=== PATIENT | female | born 1955 | race African-American/Black ===

== ENCOUNTER 2016-11-20 10:42 | Inpatient (IN) | payer OTHER ==
--- NOTE | 2016-11-20 11:11 | PDOC ---
History of Present Illness - General Chief Complaint: Pain, Acute Stated Complaint: ABD PAIN, VOMITING Time Seen by Provider: 11/20/16 11:08 History Source: Patient Exam Limitations: No Limitations - History of Present Illness Travel History: No Initial Comments: 11/20/16 11:42 61 yo F with significant PMHx of HTN presents from PMD office for possible incarcerated hernia.She has 3 day history of nausea and non-bilious vomiting. She describes 5/10 non radiating abdominal pain localized to midline just above umbilicus. Pain worse when she lyes down. No alleviating factors. Accompanied by subjective fever and chills. Denies CP, RASHID, palpitations Timing/Duration: reports: getting worse Quality: reports: moderate Pain Radiation: reports: periumbilical Past History - Past Medical History Allergies/Adverse Reactions: Allergies Allergy/AdvReac Type Severity Reaction Status Date / Time No Known Allergies Allergy Verified 11/20/16 10:54 Home Medications: Ambulatory Orders Carvedilol 25 mg PO DAILY 11/20/16 Losartan/Hydrochlorothiazide [Losartan-Hctz 100-25 mg Tab] 1 each PO DAILY 11/20 - Psycho/Social/Smoking Cessation Hx Suicidal Ideation: No Smoking History: Never smoked *Physical Exam - Vital Signs Last Vital Signs Temp Pulse Resp BP Pulse Ox 97.9 F 83 19 121/52 99 11/20/16 10:54 11/20/16 10:54 11/20/16 10:54 11/20/16 10:54 11/20/16 10:54 - Physical Exam General Appearance: Yes: Mild Distress HEENT: positive: EOMI, ADRIENNE Neck: positive: Supple Respiratory/Chest: positive: Lungs Clear, Normal Breath Sounds. negative: Respiratory Distress, Accessory Muscle Use Cardiovascular: positive: Regular Rhythm, Regular Rate, S1, S2. negative: Edema , JVD, Murmur Vascular Pulses: Dorsalis-Pedis (R): 2+, Doralis-Pedis (L): 2+ Gastrointestinal/Abdominal: positive: Normal Bowel Sounds, Tender, Soft, Other ( non reducable ventral hernia with out discoloration. ) Musculoskeletal: positive: Normal Inspection. negative: CVA Tenderness Extremity: positive: Normal Capillary Refill, Normal Inspection, Normal Range of Motion Integumentary: positive: Normal Color, Dry, Warm. negative: Cyanotic, Erythema , Jaundice ED Treatment Course - LABORATORY CBC & Chemistry Diagram: 11/20/16 11:50 11/20/16 12:34 - RADIOLOGY Radiograph Interpretation: 11/20/16 16:39 * CT/ABDOMEN PELVIS CT WITH CONTR HISTORY PROVIDED: Rule out incarcerated ventral hernia. Sequential axial images were obtained from the domes of the diaphragms through the symphysis pubis following the administration of both oral and intravenous contrast material. The lung bases are clear. There is a trace amount of ascites about the liver with free fluid in the dependent portion of the pelvis as well. There is a ventral hernia within the midline of the upper abdominal wall which does contain an incarcerated loop of small bowel. There is mild dilatation of proximal small bowel loops consistent with a partial obstruction, however, there is contrast filling normal caliber distal loops and therefore, this does not represent a high-grade obstruction. Clinical correlation and follow-up is recommended. The liver, spleen, pancreas, adrenal glands and kidneys demonstrate no significant abnormalities. There is no evidence of intra-abdominal or retroperitoneal lymphadenopathy or fluid collections. Examination of the pelvis demonstrates no evidence of pelvic masses , fluid collections or lymphadenopathy. The uterus is retroverted. There is no evidence of acute bony pathology. IMPRESSION: Ventral hernia within the midline of the upper anterior abdominal wall containing an incarcerated loop of small bowel. There is evidence for a low-grade bowel obstruction related to the hernia. Clinical correlation and follow-up recommended. Please see above discussion. Reported By: José Miguel Bernal MD 11/20/16 1624 Medical Decision Making - Medical Decision Making 11/20/16 16:41 A:61 yo F with significant PMHx of HTN presents from PMD office for possible incarcerated hernia. P: * Abdominal CT sent and positive for small incarcerated hernia * WIll admit under Omayra Raphael MD * WIll consult Dr. Chong for surgery. * Will give Levaquin 750mg IV x 1 *DC/Admit/Observation/Transfer Diagnosis at time of Disposition: Incarcerated hernia of abdominal cavity - Discharge Dispostion Condition at time of disposition: Stable Admit: Yes
[2016-11-20] MEDS ORDERED: SODIUM CHLORIDE 1,000 ML IV STA (11:33)
[2016-11-20] MEDS ORDERED: morphine CARPU-JECT 2 MG/1 ML DISP.SYRIN IVPUSH ONE (11:35)
[2016-11-20 11:59] LABS: BASOPHIL 0.6 % (0-2.0); EOSINOPHIL 0.6 % (0-4.5); MCH 27.9 pg (25.7-33.7); MCHC 33.1 g/dl (32.0-36.0); MEAN CELL VOLUME 84.3 fl (80-96); MEAN PLT VOLUME 9.2 fl (7.5-11.1); NEUTROPHILS 64.8 % (42.8-82.8); PLATELET COUNT 259 K/MM3 (134-434); RDW 14.4 % (11.6-15.6); WHITE BLOOD COUNT 10.6 K/mm3 (4.0-10.0)
[2016-11-20] MEDS ORDERED: morphine CARPU-JECT 2 MG/1 ML DISP.SYRIN ONE (12:04)
--- NOTE | 2016-11-20 12:46 | PDOC ---
Attending Attestation - Resident Resident Name: Venkat Shetty - ED Attending Attestation I have performed the following: I have examined & evaluated the patient, The case was reviewed & discussed with the resident, I agree w/resident's findings & plan, Exceptions are as noted - HPI HPI: 11/20/16 12:44 61-year-old female with history of section sent from Dr. Olsen's office with concern for incarcerated hernia. Has had 2 days of persistent periumbilical abdominal discomfort with intractable nausea/vomiting and decreased rectal output. - Physicial Exam PE: 11/20/16 12:45 Afebrile. Well-appearing. Abdomen is soft and nondistended, palpable and nonreducible supraumbilical hernia with no overlying discoloration, but tenderness to palpation. - Medical Decision Making 11/20/16 12:45 Patient seen and evaluated with the resident. I agree with the overall evaluation, assessment, and management with the following summary of visit: 61-year-old female with likely incarcerated ventral/umbilical hernia. Labs CTAP Pain control, nausea control admission and surgery consult
[2016-11-20 14:22] LABS: ALBUMIN 3.2 g/dl (3.4-5.0); CALCIUM 9.2 mg/dL (8.5-10.1)
[2016-11-20 14:26] LABS: BILIRUBIN,TOTAL 0.8 mg/dL (0.2-1.0); COCKROFT - GAULT 63.4525; TOT PROT 7.1 g/dl (6.4-8.2)
[2016-11-20] MEDS ORDERED: LEVOFLOXACIN 750 MG IVPB 150 ML IVPB ONE ×2 (16:30→16:57)
[2016-11-20 18:18] VITALS: BMI 26.5
[2016-11-20] MEDS: DEXTROSE 5%-0.45% SALINE 1,000 ML IV SCH (21:00)
--- NOTE | 2016-11-20 21:22 | CONSULT ---
Consult Consult Specialty:: Surgery: Referred by:: Donavon Cutler - History of Present Illness Chief Complaint: Abdominal pain for 3 days and vomiting. - History Source History Provided By: Patient (C/O [place]bdominal pain forthe past 3 days with vomiting.) Limitations to Obtaining History: No Limitations - Past Medical History Cardio/Vascular: Yes: HTN ...: No - Alcohol/Substance Use Hx Alcohol Use: No - Smoking History Smoking history: Never smoked Home Medications - Allergies Allergies/Adverse Reactions: Allergies Allergy/AdvReac Type Severity Reaction Status Date / Time No Known Allergies Allergy Verified 11/20/16 10:54 - Home Medications Home Medications: Ambulatory Orders Carvedilol 25 mg PO DAILY 11/20/16 Losartan/Hydrochlorothiazide [Losartan-Hctz 100-25 mg Tab] 1 each PO DAILY 11/20 Physical Exam Vital Signs: Vital Signs Temperature 98 F 11/20/16 18:14 Pulse Rate 96 H 11/20/16 18:14 Respiratory Rate 20 11/20/16 20:02 Blood Pressure 145/88 11/20/16 18:14 O2 Sat by Pulse Oximetry (%) 99 11/20/16 20:02 Gastrointestinal: Yes: Abdomen, Obese, Palpable Mass (There is a well rounded mass on her upper abdomen to the left of the midline, above the umbilicus. This was carefully reduced , during examination , and the mass disappeared , reduced into the abdominal cavity.) Imaging - Results Cat Scan: Report Reviewed, Image Reviewed Problem List - Problems (1) Ventral hernia with bowel obstruction Code(s): K43.6 - OTHER AND UNSP VENTRAL HERNIA WITH OBSTRUCTION, W/O GANGRENE (2) Hypertension Code(s): I10 - ESSENTIAL (PRIMARY) HYPERTENSION Qualifiers: Hypertension type: essential hypertension Qualified Code(s): I10 - Essential (primary) hypertension Assessment/Plan The hernia was reduced at the bedside. Patient is made aware of having the hernia and need for surgical repair to avoid recurrence and strangulation. Keep NPO. IV fluids. Will plan surgery for 11/22/2016. NG tube placed , and connected to suction. Follow up abdominal X-ray
[2016-11-21] MEDS: DEXTROSE 5%-0.45% SALINE 1,000 ML IV SCH (05:42)
[2016-11-21 07:40] LABS: MCH 28.1 pg (25.7-33.7); MCHC 33.3 g/dl (32.0-36.0); MEAN CELL VOLUME 84.5 fl (80-96); MEAN PLT VOLUME 8.6 fl (7.5-11.1); PLATELET COUNT 202 K/MM3 (134-434); RDW 14.1 % (11.6-15.6); WHITE BLOOD COUNT 6.9 K/mm3 (4.0-10.0)
[2016-11-21 08:02] LABS: CALCIUM 8.9 mg/dL (8.5-10.1); COCKROFT - GAULT 70.499; CREATININE 0.9 mg/dL (0.55-1.02)
--- NOTE | 2016-11-21 10:48 | HP ---
Admitting History and Physical - Primary Care Physician PCP: Tony Olsen M - Admission Chief Complaint: abd pain History of Present Illness: ER HISTORY - History of Present Illness Travel History: No Initial Comments: 11/20/16 11:42 61 yo F with significant PMHx of HTN presents from PMD office for possible incarcerated hernia.She has 3 day history of nausea and non-bilious vomiting. She describes 5/10 non radiating abdominal pain localized to midline just above umbilicus. Pain worse when she lyes down. No alleviating factors. Accompanied by subjective fever and chills. Denies CP, RASHID, palpitations Pt examined by me on the floors She was sent form DR Olsen's office for abd pain, no BM since Friday, nausea and vomiting. No radiation of pain - pt points to the periumbilical area. She has NGT on suction. 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 No recent coughing or straining . H/O History Source: Patient Limitations to Obtaining History: No Limitations - Past Medical History Cardiovascular: Yes: HTN ...: No - Past Surgical History Past Surgical History: Yes: - Smoking History Smoking history: Never smoked - Alcohol/Substance Use Hx Alcohol Use: No Home Medications - Allergies Allergies/Adverse Reactions: Allergies Allergy/AdvReac Type Severity Reaction Status Date / Time No Known Allergies Allergy Verified 11/20/16 10:54 - Home Medications Home Medications: Ambulatory Orders Carvedilol 25 mg PO DAILY 11/20/16 Losartan/Hydrochlorothiazide [Losartan-Hctz 100-25 mg Tab] 1 each PO DAILY 11/20 Review of Systems - Review of Systems Constitutional: denies: Chills, Fever, Weakness Gastrointestinal: reports: Abdominal Pain, Constipation, Nausea, Vomiting. denies: Diarrhea Physical Examination Vital Signs: Vital Signs Temperature 99.0 F 11/21/16 06:22 Pulse Rate 72 11/21/16 06:22 Respiratory Rate 20 11/21/16 06:22 Blood Pressure 139/79 11/21/16 06:22 O2 Sat by Pulse Oximetry (%) 99 11/20/16 20:02 Constitutional: Yes: No Distress, Calm, Other (NGT+) Cardiovascular: Yes: Regular Rate and Rhythm Respiratory: Yes: CTA Bilaterally Gastrointestinal: Yes: Soft, Abdomen, Obese, Other (umbilical hernia+ reduced). No: Normal Bowel Sounds, Distention, Tenderness Edema: No Psychiatric: Yes: Alert, Oriented Labs: CBC, BMP 11/21/16 06:40 11/21/16 06:40 Imaging - Results Chest X-ray: Image Reviewed (clear) Cat Scan: Report Reviewed EKG: Pending Problem List - Problems (1) Hypertension Code(s): I10 - ESSENTIAL (PRIMARY) HYPERTENSION Qualifiers: Hypertension type: essential hypertension Qualified Code(s): I10 - Essential (primary) hypertension (2) Incarcerated hernia of abdominal cavity Code(s): K45.0 - OTH ABDOMINAL HERNIA WITH OBSTRUCTION, WITHOUT GANGRENE (3) Ventral hernia with bowel obstruction Code(s): K43.6 - OTHER AND UNSP VENTRAL HERNIA WITH OBSTRUCTION, W/O GANGRENE Assessment/Plan PLAN Keep NPO Pain control if needed IV fluids with KCL NGT on suction FUA done today-- pending - but she is not passing flatus nor had a bm today. No bowel sounds heard today either. IV antibiotics-- intra-abdominal coverage, has low grade fever, check cultures today . Not done in ER spoke with Dr Chong -- she will go for surgery tomorrow-- he reduced the hernia today. EKG ordered, will clear her medically for surgery after I see her EKG DVT prophylaxis Spoke with Nurse Time spent 30 min
[2016-11-21] MEDS ORDERED: D5-1/2NS+20 MEQ KCL - 1,000 ML IV SCH (10:50)
[2016-11-21] MEDS ORDERED: LORAZEPAM CARPU-JECT 2 MG/ML DISP.SYRIN IVPUSH PRN (11:17)
[2016-11-21] MEDS: LEVOFLOXACIN 500 MG IVPB 100 ML IVPB SCH (11:27)
[2016-11-21] MEDS: PANTOPRAZOLE SODIUM 100 ML IVPB SCH (12:04)
[2016-11-21 13:42] LABS: INR 1.42 (0.82-1.09); PROTHROMBIN TIME (PATIENT) 15.7 SEC (9.98-11.88)
--- NOTE | 2016-11-21 16:24 | PN ---
Progress Note, Physician - Current Medication List Current Medications: Active Medications Potassium Chloride/Dextrose/Sod Cl (D5-1/2ns+20 Meq Kcl -) 1,000 mls @ 100 mls/ hr IV ASDIR [facility] Last Admin: 11/21/16 11:29 Dose: 100 mls/hr Levofloxacin (Levaquin 500 Mg Premixed Ivpb -) 100 mls @ 100 mls/hr IVPB DAILY [facility] Last Admin: 11/21/16 11:27 Dose: 100 mls/hr Pantoprazole Sodium (Protonix 40mg Ivpb (Pre-Docked)) 100 mls @ 200 mls/hr IVPB DAILY [facility] Last Admin: 11/21/16 12:04 Dose: 200 mls/hr Lorazepam (Ativan Injection -) 0.5 mg IVPUSH TID PRN PRN Reason: ANXIETY - Objective Vital Signs: Vital Signs Temperature 99.0 F 11/21/16 14:52 Pulse Rate 68 11/21/16 14:52 Respiratory Rate 18 11/21/16 10:00 Blood Pressure 140/79 11/21/16 14:52 O2 Sat by Pulse Oximetry (%) 99 11/21/16 09:00 Labs: CBC, BMP 11/21/16 06:40 11/21/16 06:40 INR, PTT INR 1.42 (0.82-1.09) H 11/21/16 12:45 Problem List - Problems (1) Ventral hernia with bowel obstruction Code(s): K43.6 - OTHER AND UNSP VENTRAL HERNIA WITH OBSTRUCTION, W/O GANGRENE (2) Hypertension Code(s): I10 - ESSENTIAL (PRIMARY) HYPERTENSION Qualifiers: Hypertension type: essential hypertension Qualified Code(s): I10 - Essential (primary) hypertension Assessment/Plan Patient has no abdominal pain. She has not passed flatus. Abdomen is soft , not tender, she still has a mass inher epigastrium. Abdominal X-ray shows dilated loops of small bowel with contrast in the colon. WBC 6900. Continue nasogastric aspiration, IV fluids. I have discussed with the director of medical staff services of "[facility]", the [employer] who wants to transfer the patient and will let us know if he can , to a hospital participating with her plan. The patient is made aware.
--- NOTE | 2016-11-21 17:21 | EKG ---
Test Reason : Blood Pressure : / mmHG Vent. Rate : 064 BPM Atrial Rate : 064 BPM P-R Int : 158 ms QRS Dur : 086 ms QT Int : 416 ms P-R-T Axes : 032 023 046 degrees QTc Int : 429 ms NORMAL SINUS RHYTHM NORMAL ECG WHEN COMPARED WITH ECG OF 19-JUN-2006 07:34, NO SIGNIFICANT CHANGE WAS FOUND Confirmed by GIUSEPPE HOUSER MD ([id number]) on 11/21/2016 5:20:48 PM Referred By: ABDOULAYE JEREZ Confirmed By:GIUSEPPE HOUSER MD
[2016-11-22 09:29] LABS: CALCIUM 8.8 mg/dL (8.5-10.1); COCKROFT - GAULT 79.3135; CREATININE 0.8 mg/dL (0.55-1.02)
[2016-11-22] MEDS: PANTOPRAZOLE SODIUM 100 ML IVPB SCH (09:33)
[2016-11-22] MEDS: LEVOFLOXACIN 500 MG IVPB 100 ML IVPB SCH (09:33)
--- NOTE | 2016-11-22 10:38 | PN ---
Progress Note (short form) - Note Progress Note: Subjective Patient seen and examined. Chart reviewed. Comfortable. Scheduled for OR later today. Pt denies pain. Daughter at bedside Objective Last Vital Signs Temp Pulse Resp BP Pulse Ox 98.7 F 72 18 145/70 99 11/22/16 09:31 11/22/16 09:31 11/22/16 09:31 11/22/16 09:31 11/21/16 21:00 CBC, BMP 11/21/16 06:40 11/22/16 07:34 Laboratory Results - last 24 hr 11/21/16 11/22/16 12:45 07:34 INR 1.42 H Sodium 140 Potassium 3.5 Chloride 103 Carbon Dioxide 29 Anion Gap 8 BUN 11 D Creatinine 0.8 Random Glucose 99 Calcium 8.8 Physical Exam Constitutional: Yes: No Distress, Calm, Other (NGT+) Cardiovascular: Yes: Regular Rate and Rhythm Respiratory: Yes: CTA Bilaterally Gastrointestinal: Yes: Soft Edema: No Psychiatric: Yes: Alert, Oriented Problem List - Problems (1) Hypertension Code(s): I10 - ESSENTIAL (PRIMARY) HYPERTENSION Qualifiers: Hypertension type: essential hypertension Qualified Code(s): I10 - Essential (primary) hypertension (2) Incarcerated hernia of abdominal cavity Code(s): K45.0 - OTH ABDOMINAL HERNIA WITH OBSTRUCTION, WITHOUT GANGRENE (3) Ventral hernia with bowel obstruction Code(s): K43.6 - OTHER AND UNSP VENTRAL HERNIA WITH OBSTRUCTION, W/O GANGRENE Assessment and Plan Clincially stable. SBO. Continue present care. Medically stable for proposed procedure. Discussed with patient and pt's daughter. Will follow. Documentation prepared by Hannah Celis, acting as a medical editor for Valentine Obrien MD.
[2016-11-22] MEDS ORDERED: SUCCINYLCHOLINE CHLORIDE 200 MG/10 ML VIAL ONE (12:27)
[2016-11-22] MEDS ORDERED: PROPOFOL 20 ML ONE (12:27)
[2016-11-22] MEDS ORDERED: MIDAZOLAM HCL 2 MG/2 ML SINGLE DOSE VIAL ONE (12:27)
[2016-11-22] MEDS ORDERED: ROCURONIUM BROMIDE 50 MG/5 ML VIAL ONE (12:27)
[2016-11-22] MEDS ORDERED: LACTATED RINGERS SOLUTION 1,000 ML IV SCH (12:30)
[2016-11-22] MEDS ORDERED: PROMETHAZINE HCL 25 MG/1 ML VIAL IVPUSH PRN ×2 (12:30→16:08)
[2016-11-22] MEDS ORDERED: ONDANSETRON 4 MG/2 ML VIAL IVPUSH PRN ×2 (12:30→16:08)
[2016-11-22] MEDS ORDERED: ceFAZolin SODIUM 1 GM VIAL IVPB ONE (13:23)
[2016-11-22] MEDS ORDERED: ePHEDrine SULFATE 50 MG/1 ML AMPULE ONE (13:28)
[2016-11-22] MEDS ORDERED: BUPIVACAINE HCL/PF (5 MG/ML) 30 ML VIAL IJ ONE (15:09)
--- NOTE | 2016-11-22 15:35 | OP ---
Operative Note - Note: Operative Date: 11/22/16 Pre-Operative Diagnosis: Incarcerated ventral hernia. Operation: Laparoscopic repair of incarcerated ventral hernia with mesh. Findings: Large abdominal wall defect above the umbilicus, with incarcerated fat, and bowel reduced. Surgeon: Jag Chong [place] Furnace Tender: Marina Houston Anesthesiologist/TOWER CLIMBER: Manuel Munoz Anesthesia: General Specimens Removed: Henial sac and contents. Estimated Blood Loss (mls): 10 Operative Report Dictated: Yes
[2016-11-22] MEDS ORDERED: IBUPROFEN 400 MG TABLET (FP) PO PRN (15:40)
[2016-11-22] MEDS ORDERED: OXYCODONE/APAP 5/325MG COMBO TABLET PO PRN (15:41)
[2016-11-22] MEDS ORDERED: LORAZEPAM CARPU-JECT 2 MG/ML DISP.SYRIN IVPUSH PRN (16:08)
[2016-11-22] MEDS ORDERED: LABETALOL HCL 5 MG/1 ML (100MG/20 ML VIAL) IVPUSH ONE (16:30)
[2016-11-22] MEDS ORDERED: hydrALAZINE HCL 20 MG/ML VIAL ONE (16:33)
[2016-11-22] MEDS: LACTATED RINGERS SOLUTION 1,000 ML IV SCH (17:00)
[2016-11-22] MEDS ORDERED: hydrALAZINE HCL 20 MG/ML VIAL IVPUSH ONE (17:08)
[2016-11-22] MEDS: ACETAMINOPHEN 325 MG TABLET (FP) PO PRN (21:27)
[2016-11-22] MEDS: oxyCODONE HCL 5 MG TABLET PO PRN (21:27)
[2016-11-23] MEDS: oxyCODONE HCL 5 MG TABLET PO PRN (05:42)
[2016-11-23] MEDS: ACETAMINOPHEN 325 MG TABLET (FP) PO PRN (05:43)
[2016-11-23] MEDS: LACTATED RINGERS SOLUTION 1,000 ML IV SCH ×2 (05:44→09:42)
--- NOTE | 2016-11-23 09:30 | PN ---
Progress Note, Physician Chief Complaint: Pt has no GA complaints. Eating breakfast. - Current Medication List Current Medications: Active Medications Acetaminophen (Tylenol -) 650 mg PO Q6H PRN PRN Reason: PAIN 6-10 Last Admin: 11/23/16 05:43 Dose: 650 mg Carvedilol (Coreg -) 25 mg PO DAILY [facility] Fentanyl (Sublimaze Injection -) 50 mcg IVPUSH [id number] PRN PRN Reason: PAIN Stop: 11/25/16 12:31 HCTZ/Losartan Potassium (Hyzaar -) 2 tab PO DAILY [facility] Lactated Ringer's (Lactated Ringers Solution) 1,000 mls @ 125 mls/hr IV ASDIR [facility] Last Admin: 11/23/16 05:44 Dose: 125 mls/hr Ibuprofen (Motrin -) 400 mg PO Q6H PRN PRN Reason: PAIN Lorazepam (Ativan Injection -) 0.5 mg IVPUSH TID PRN PRN Reason: ANXIETY Oxycodone HCl (Roxicodone -) 10 mg PO Q6H PRN PRN Reason: PAIN 6-10 Last Admin: 11/23/16 05:42 Dose: 10 mg - Objective Vital Signs: Vital Signs Temperature 97.5 F L 11/23/16 06:00 Pulse Rate 75 11/23/16 06:00 Respiratory Rate 16 11/23/16 06:00 Blood Pressure 141/85 11/23/16 06:00 O2 Sat by Pulse Oximetry (%) 95 11/22/16 21:00 Constitutional: Yes: Well Nourished, No Distress, Calm Neurological: Yes: WNL, Alert, Oriented ...Motor Strength: WNL Labs: CBC, BMP 11/21/16 06:40 11/22/16 07:34 INR, PTT INR 1.42 (0.82-1.09) H 11/21/16 12:45 Assessment/Plan POD#1 s/p laparoscopic ventral hernia repair. Doing well. D/C from anesthesia care.
[2016-11-23] MEDS ORDERED: CARVEDILOL 25 MG TABLET (FP) PO SCH (10:00)
[2016-11-23] MEDS ORDERED: LOSARTAN 50MG/HCTZ 12.5MG 1 TAB (FP) PO SCH (10:00)
--- NOTE | 2016-11-23 13:02 | DS ---
Physical Examination Vital Signs: Vital Signs Temperature 97.5 F L 11/23/16 06:00 Pulse Rate 75 11/23/16 06:00 Respiratory Rate 16 11/23/16 06:00 Blood Pressure 141/85 11/23/16 06:00 O2 Sat by Pulse Oximetry (%) 95 11/22/16 21:00 Findings/Remarks: doing well no complains pain under control ate breakfast passing gas Constitutional: Yes: No Distress, Calm Neck: Yes: Supple Cardiovascular: Yes: Regular Rate and Rhythm Respiratory: Yes: CTA Bilaterally Gastrointestinal: Yes: Soft Edema: No Labs: CBC, BMP 11/21/16 06:40 11/22/16 07:34 Discharge Summary Reason For Visit: INCARCERATED HERNIA OF ABDOMINAL CAVITY Current Active Problems Hypertension (Acute) Incarcerated hernia of abdominal cavity (Acute) Ventral hernia with bowel obstruction (Acute) Hospital Course: POD#1 s/p laparoscopic ventral hernia repair-- incarcinated findings noted discussed with Dr. Castillo David for d/c home Dr. Chong says he send meds meds reconcilled pt to follow with her pmd next week and f/u with surgeon as advised small frequent meals stool softners pt in agreement discussed with nursing staff also d/c time in examining/ documenting and coordinating care-- 35 min Condition: Stable - Instructions Diet, Activity, Other Instructions: Usual diet. Can shower daily. Follow up in my office on 11/28/2016, at 4.30 p,m. Referrals: Freida Olsen MD [Primary Care Provider] - - Home Medications Comprehensive Discharge Medication List: Ambulatory Orders Carvedilol 25 mg PO DAILY 11/20/16 Losartan/Hydrochlorothiazide [Losartan-Hctz 100-25 mg Tab] 1 each PO DAILY 11/20 Acetaminophen [Tylenol .Regular Strength -] 650 mg PO Q6H PRN #0 tablet Ibuprofen [Motrin -] 400 mg PO Q6H PRN #0 tablet 11/23/16 Oxycodone HCl [Roxicodone -] 10 mg PO Q6H PRN #30 tablet MDD 4 11/23/16
--- NOTE | 2016-11-23 14:25 | OP ---
DATE OF OPERATION: 11/22/2016 PREOPERATIVE DIAGNOSES: Incarcerated ventral hernia and hypertension. POSTOPERATIVE DIAGNOSES: Incarcerated ventral hernia and hypertension. OPERATIVE PROCEDURE: Laparoscopic repair of incarcerated ventral hernia with mesh. SURGEON: Brayan Chong MD KIER PLEATER: LOR Pearson ANESTHESIOLOGIST: Yu Munoz MD ANESTHESIA: General anesthesia. OPERATIVE DESCRIPTION: This 61-year-old woman was admitted with sudden onset of pain and swelling in the epigastrium associated with nausea and vomiting. She was diagnosed with an incarcerated ventral hernia and was admitted to the hospital. The hernia was reduced upon admission manually by me and then she was followed with subsequent abdominal x-ray which showed the obstruction having been relieved with the contrast progressing down to the colon. She was seen by the medical service, evaluated, and once she was optimized she was brought to the operating room for repair of the ventral hernia. Consent was obtained. Risks, benefits, and complications have been discussed with the patient. The hernia was subsequently reducible. However, the bowel kept on incarcerating within the defect. Patient was brought to the operating room. General anesthesia was administered. The abdomen was painted and draped. Patient had previous lower abdominal surgery from 3 sections many, many years ago. Timeout was called. Patient was given 1 g of Ancef. An incision was made in the midline in the subxiphoid area which was carried down through the skin, subcutaneous fat, the linea alba in the midline, and the peritoneal cavity was entered. Once the peritoneal cavity was entered, a 10-to-12-mm laparoscopic trocar of the Dana type was introduced into the abdominal cavity. The abdomen was inflated with carbon dioxide at 6 L per minute with maximum intraabdominal pressure of 15 mmHg. A 5-mm, 30-degree angle camera was introduced into the abdominal cavity and the abdominal cavity was inspected. There was a hemorrhagic area with a defect in the abdominal wall just in the midline above the umbilicus, adjacent to the falciform ligament. However, the bowel seemed to have been reduced into the abdominal cavity and was not going through the defect. There was hemorrhagic omentum and parietal peritoneum around the defect, suggestive of recent incarceration. Two 5-mm trocars were inserted in the left side of the abdomen, 1 in the left lower quadrant, another in the left upper quadrant. A 3rd 5-mm trocar was inserted in the right lower quadrant of the abdomen, all 3 as laterally as possible. These were introduced avoiding any bowel injury under direct vision with the camera. Once this was done, 2 trocars were inserted in both lower quadrants of the abdomen and the camera was switched to the right upper quadrant. The sac was withdrawn into the abdominal cavity by gentle traction, with the graspers. The herniated properitoneal fat, was pulled into the abdominal cavity and excised , and sent to Pathology. Once the defect was felt defined, 3 small incisions were made on the skin, on either side of the defect in the epigastrium. A subcutaneous tunnel was then created, to pass 0 Vicryl sutures across the defect in a horizontal fashion. Three such sutures were obtained, 1 in the center of the defect, another on either side of the center of the defect. These were passed, across the hernial defect, under the abdominal skin to create a tunnel. Once the suture was passed across the abdominal defect, it was introduced into the abdominal cavity with a suture passer. With the camera, it was noted entering the abdominal cavity. This was then grasped within the abdominal cavity, and passed across to the opposite side, wherein again a suture passer, was introduced vertically through the abdominal wall. The Vicryl suture was then grasped and brought out through the abdominal wall. Thus, the 0 Vicryl was passed around the abdominal wall,across the defect. Three such sutures were passed, one in the center of the defect, another on either side. Once the sutures were placed, the abdomen was deflated and the defect approximated by tying the knot, with the suture going around the abdominal wall. Thus, the defect was primarily approximated with 0 Vicryl sutures. Once this was done, a 15 x 3 to 20 x 2-cm Ventralight mesh, with the positioning system, was folded and introduced through the epigastric 12-mm defect. The mesh was placed over the omentum and the small intestine. The centerpiece of the positioning system, was brought through a suture passer right through the center of the defect. This was connected to the system available to inflate the rubber device, enabling to holdthe mesh against the anterior abdominal wall. Once the mesh was positioned and held against the anterior abdominal wall, it was anchored in place,with the AbsorbaTack, absorbable tacking device. These tackers were placed circumferentially, at the periphery of the mesh, and another in between the center and the peripheral edge of the mesh. Thus, 2 layers of circular mesh were placed circumferentially. This mesh was adequately placed against the abdominal wall. Once this was done, the positioning rubber band was deflated and it was pulled out of the abdominal cavity through the epigastric port. The mesh was adequately placed against the abdominal wall. The rubber inflatable device that was used to hold the mesh against the abdominal wall, was completely removed from the abdominal cavity. The abdomen was then carefully deflated. The abdominal wall was seen , lying against ,the mesh again . The defect was adequately covered. The instruments were withdrawn under direct vision. The linea alba in the midline at the epigastrium was approximated with interrupted bwrwti-fj-wears 2-0 Vicryl sutures. Marcaine 0.5% was injected into the wound and the abdominal wall. The 5-mm defect was approximated with buried interrupted 4-0 Monocryl sutures. The 10-mm defect in the epigastrium was also approximated with continuous 4-0 Monocryl sutures in a running subcuticular fashion. Dermabond was applied to the skin edges. Patient tolerated the procedure well. Estimated blood loss was less than 10 mL. Patient was extubated and sent to the recovery room in satisfactory and stable condition. Haile JORDAN/[id number] cc: MD Tony Burns MD MTDD
[2016-11-23 15:10] VITALS: BP 123/67; PULSE 96; TEMP 99.1
--- NOTE | 2016-11-25 13:31 | SURG ---
Surgery Travel Writer Note Travel Writer: Marina Houston PA-C Date of Service: 11/25/16 Diagnosis: Incarcerated ventral hernia. Procedure: Laparoscopic repair of incarcerated ventral hernia with mesh. I was present for the entirety of the operative procedure. For further detail, please refer to operative report. Visit type - Case Type Case Type: Scheduled Admission - Emergency Emergency Visit: No - New patient This patient is new to me today: Yes Date on this admission: 11/25/16 - Critical Care Critical Care patient: No
--- NOTE | 2016-11-26 13:51 | PATH ---
Surgical Pathology Report Patient Name: ASHLI TANG [facility]. Rec. #: [id number] /Age/Gender: 1955 (Age: 61) / F Account: [id number] Location: [address] [place] [address]/[facility] Taken: 11/22/2016 Received: 11/25/2016 Reported: 11/26/2016 Physicians: Brayan Chong M.D. Specimen(s) Received A: HERNIA SAC B: PERITONEAL CONTENTS Clinical History Incarcerated hernia of abdominal cavity Final Diagnosis A. HERNIA SAC, INCARCERATED VENTRAL HERNIA REPAIR: BENIGN FIBROMEMBRANOUS AND FIBROFATTY TISSUE WITH VASCULAR CONGESTION AND HEMORRHAGE. B. PERITONEAL CONTENTS: BENIGN FATTY TISSUE WITH VASCULAR CONGESTION AND HEMORRHAGE. Electronically Signed Armando Ramsey M.D. Gross Description A. Received in formalin labeled "hernia sac, contents of hernia" is a 6.5 x 4.5 x 2.3 cm aggregate of multiple ford-mo, irregular portions of fibromembranous tissue and attached fat, consistent with a hernia sac. Manager Adult sections are submitted in one cassette. B. Received in formalin labeled "peritoneal contents" is a 2.8 x 2.0 x 0.4 cm portion of ford-brown fibromembranous tissue with attached fat. Manager Adult sections are submitted in one cassette. /11/25/2016 [facility]11/25/2016
== END 2016-11-23 17:19 | disposition home or self-care (01) | DRG 160 ==
LOC: JER 10:42 → JERBED 16:44 → J6S 17:48
PROVIDERS: ADMIT Internal Medicine; ATTEND Internal Medicine
PROC: 0WUF4JZ Supplement Abdominal Wall with Synthetic Substitute, Percutaneous Endoscopic Approach (ICD-10-PCS; principal; 2016-11-22 13:30)
DX: K43.6 Other and unspecified ventral hernia with obstruction, without gangrene (principal); I10 Essential (primary) hypertension; K46.0 Unspecified abdominal hernia with obstruction, without gangrene
CPT/HCPCS: 36415; 71010-TC; 74000-TC; 74020-TC; 74177-TC; 80048; 80053; 83605; 85025; 85027; 85610; 87040; 88302-TC; 88304-TC; 93005; 93010; 94760; 99285-25; Q9967

== ENCOUNTER 2017-08-16 22:29 | Emergency (ER) | payer OTHER ==
[2017-08-16 22:36] VITALS: BMI 25.7
--- NOTE | 2017-08-16 22:57 | PDOC ---
History of Present Illness - General History Source: Patient Exam Limitations: No Limitations - History of Present Illness Initial Comments: 08/16/17 23:12 The patient is a 62 year old female with past medical history of hypertension and acid reflux who presents to the ED with allergic reaction while at [facility]. The patient and her daughter [facility] multiple types of fish and seafood when the patient began developing hives diffusely across her torso as well as eyelid swelling. She promptly took two benadryl and went to the ED. She denies any throat swelling, difficulty breathing, or changes in her voice. The patient denies knowledge of any allergies. She denies any nausea, vomiting, or diarrhea. The patient reports no one else at dinner experienced a similar reaction. <Aida Ramires - Last Filed: 08/16/17 23:12> <Braeden Salnias - Last Filed: 08/17/17 00:32> - General Chief Complaint: Allergic Reaction Stated Complaint: ALLERGIC REACTION Time Seen by Provider: 08/16/17 22:55 Past History <Aida Ramires - Last Filed: 08/16/17 23:12> - Past Medical History Anemia: No Asthma: No Cancer: No CVA: No COPD: No Dementia: No Diabetes: No GI Disorders: No Disorders: No HTN: Yes Hypercholesterolemia: No Liver Disease: No Seizures: No Thyroid Disease: No - Surgical History Abdominal Surgery: No Appendectomy: No Cardiac Surgery: No Cholecystectomy: No Lung Surgery: No Neurologic Surgery: No Orthopedic Surgery: No - Immunization History Immunization Up to Date: Yes - Suicide/Smoking/Psychosocial Hx Smoking History: Never smoked Have you smoked in the past 12 months: No Information on smoking cessation initiated: No Hx Alcohol Use: No Drug/Substance Use Hx: No Substance Use Type: None <Braeden Salinas - Last Filed: 08/17/17 00:32> - Past Medical History Allergies/Adverse Reactions: Allergies Allergy/AdvReac Type Severity Reaction Status Date / Time No Known Allergies Allergy Verified 08/16/17 22:36 Home Medications: Ambulatory Orders Naproxen 500 mg PO DAILY PRN 08/16/17 Nifedipine ER [Procardia XL -] 90 mg PO DAILY 08/16/17 Omeprazole 40 mg PO DAILY 08/16/17 Methylprednisolone [Medrol Dose Douglas] 4 mg PO ASDIR #21 tablet 08/17/17 Review of Systems - Review of Systems Able to Perform ROS?: Yes <Aida Ramires - Last Filed: 08/16/17 23:12> - Review of Systems Constitutional: No: Chills, Fever HEENTM: No: Nose Congestion, Throat Pain, Throat Swelling Respiratory: No: Shortness of Breath Cardiac (ROS): No: Chest Pain, Palpitations, Syncope ABD/GI: No: Nausea, Vomiting Integumentary: Yes: See HPI, Pruritus, Rash All Other Systems: Reviewed and Negative <Braeden Salinas - Last Filed: 08/17/17 00:32> *Physical Exam - Vital Signs Last Vital Signs Temp Pulse Resp BP Pulse Ox 98.2 F 100 H 18 165/68 98 08/16/17 22:33 08/16/17 22:33 08/16/17 22:33 08/16/17 22:33 08/16/17 22:33 - Physical Exam Comments: 08/16/17 23:12 GENERAL: The patient is awake, alert, and fully oriented, in no acute distress. HEAD: Normal with no signs of trauma. EYES: Injected conjunctiva. Mild eyelid swelling. Pupils equal, round and reactive to light, extraocular movements intact, sclera anicteric, ENT: Ears normal, nares patent, oropharynx clear without exudates. Moist mucous membranes. NECK: Normal range of motion, supple without lymphadenopathy, JVD, or masses. LUNGS: Breath sounds equal, clear to auscultation bilaterally. No wheeze/ crackles. HEART: Regular rate and rhythm, normal S1 and S2 without murmur or rub. ABDOMEN: Soft/nontender/nondistended. BS wnl. No guarding or rebound. No palpable masses. No hepatosplenomegaly. EXTREMITIES: Normal range of motion, no edema. No clubbing or cyanosis. No cords, erythema, or tenderness. NEUROLOGICAL: Cranial nerves II through XII grossly intact. Normal speech, normal gait. PSYCH: Normal mood, normal affect. SKIN: Diffuse urticaria on abdomen. Warm, Dry, normal turgor. <Aida Ramires - Last Filed: 08/16/17 23:12> - Vital Signs Last Vital Signs Temp Pulse Resp BP Pulse Ox 98.2 F 100 H 18 165/68 98 08/16/17 22:33 08/16/17 22:33 08/16/17 22:33 08/16/17 22:33 08/16/17 22:33 <Braeden Salinas - Last Filed: 08/17/17 00:32> Medical Decision Making - Medical Decision Making 08/16/17 23:06 A portion of this note was documented by scribe services under my direction. I have reviewed the details of the note, within reason, and agree with the documentation with the following case summary and management plan written by me. 62-year-old female with history of hypertension presents with itchy rash to face and torso after eating fish at [employer]. Relatively acute onset of eyelid swelling with urticaria, took 2 Benadryl with improving symptoms, presents now for evaluation. No throat pain or swelling, no difficulty breathing , no vomiting. No history of known ALLERGIES, no one else had similar reaction. Vital signs normal, heart rate improved and in the 80s, notably 100 at triage Slight conjunctival edema, scattered mild urticaria to the back, oropharynx is clear without stridor or edema Lungs are clear, good air entry, no wheezing 62-year-old female with urticarial reaction, likely to fish. No airway involvement, lungs are clear. Hemodynamically stable without respiratory distress Already received Benadryl, will add Zantac and prednisone Monitor and dispo with medications, ALLERGY follow-up 08/17/17 00:29 Symptoms improved, facial swelling resolved, no further itching, airway remains patent without aspiratory wheezing. Agrees with discharge plan, has Benadryl, understands return criteria. <Braeden Salinas - Last Filed: 08/17/17 00:32> *DC/Admit/Observation/Transfer - Attestations Scribe Attestion: 08/16/17 23:17 Documentation prepared by Aida Ramires, acting as clinical medical transcriptionist for Braeden Salinas MD. <Aida Ramires - Last Filed: 08/16/17 23:12> <Braeden Salinas - Last Filed: 08/17/17 00:32> Diagnosis at time of Disposition: Urticaria - Discharge Dispostion Disposition: HOME Condition at time of disposition: Improved - Prescriptions Prescriptions: Methylprednisolone [Medrol Dose Douglas] 4 mg PO ASDIR #21 tablet - Referrals Referrals: Freida Olsen MD [Primary Care Provider] - Delisa Stevenson MD [Staff Physician] - - Patient Instructions Printed Discharge Instructions: DI for Hives Additional Instructions: Activity as tolerated. Stay hydrated. You had an ALLERGIC reaction, likely to fish, but the actual source is unclear. Continue Benadryl 50 mg every 4-6 hours as needed for itchy rash, take steroids as prescribed. Continue your medications as previously prescribed by your physician. You should follow up with your primary doctor as soon as possible regarding today's emergency department visit. You should also see a stock repairer/ epic beacon analyst to specify the cause of your ALLERGY. Return to the emergency department for any new or concerning symptoms, particularly persistent rash, facial swelling or itching, airway swelling or difficulty breathing. - Post Discharge Activity
[2017-08-16] MEDS ORDERED: predniSONE 20 MG TABLET (UD) PO ONE (23:05)
[2017-08-16] MEDS ORDERED: RANITIDINE HCL 150 MG TABLET (FP) PO ONE (23:05)
[2017-08-17] MEDS ORDERED: RANITIDINE HCL 150 MG TABLET (FP) ONE
[2017-08-17] MEDS ORDERED: predniSONE 20 MG TABLET (UD) ONE
[2017-08-17 00:40] VITALS: BP 162/67; PULSE 98; TEMP 98
== END 2017-08-17 00:46 | disposition home or self-care (01) ==
LOC: JER 22:29
DX: T78.1XXA Other adverse food reactions, not elsewhere classified, initial encounter (principal); Y92.511 Restaurant or cafe as the place of occurrence of the external cause
CPT/HCPCS: 99281-25

== ENCOUNTER 2018-09-09 05:11 | Day surgery (SDC) | payer OTHER ==
[2018-09-08 15:22] VITALS: BMI 28.3
[2018-09-09] MEDS ORDERED: MIDAZOLAM HCL 2 MG/2 ML SINGLE DOSE VIAL ONE (12:03)
[2018-09-09] MEDS ORDERED: ONDANSETRON 4 MG/2 ML VIAL IVPUSH PRN (12:12)
[2018-09-09] MEDS ORDERED: oxyCODONE HCL 5 MG TABLET PO PRN (12:12)
[2018-09-09] MEDS ORDERED: LACTATED RINGERS SOLUTION 1,000 ML IV SCH (12:15)
[2018-09-09] MEDS ORDERED: DEXAMETHASONE SOD PHOSPHATE 4 MG/1 ML VIAL ONE (12:17)
[2018-09-09] MEDS ORDERED: LIDOCAINE HCL/PF 2% SDV 5ML VIAL ONE (12:17)
[2018-09-09] MEDS ORDERED: SUCCINYLCHOLINE CHLORIDE 200 MG/10 ML VIAL ONE (12:22)
[2018-09-09] MEDS ORDERED: PROPOFOL 20 ML ONE (12:22)
[2018-09-09] MEDS ORDERED: ceFAZolin SODIUM 1 GM VIAL ONE (12:28)
[2018-09-09] MEDS ORDERED: KETOROLAC TROMETHAMINE 30 MG/1 ML VIAL ONE (12:29)
[2018-09-09] MEDS ORDERED: ePHEDrine SULFATE 50 MG/1 ML AMPULE ONE (12:56)
[2018-09-09] MEDS ORDERED: ACETAMINOPHEN 325 MG TABLET (FP) PO PRN (13:47)
[2018-09-09] MEDS ORDERED: IBUPROFEN 400 MG TABLET (FP) PO PRN (13:47)
--- NOTE | 2018-09-09 14:36 | OP ---
DATE OF OPERATION: 09/09/2018 SURGEON: Lili Dubois MD PREOPERATIVE DIAGNOSIS: Cervical dysplasia, low-grade squamous cell epithelial abnormality for times the Pap test was abnormal. DESCRIPTION OF PROCEDURE: Cervix was distorted. For that reason, patient should have colposcopy and LEEP procedure. During the colposcopy there was no lesion, but the cervix was so short and distorted, and internal os was not very visible. At this time, after colposcopy and Schillers test was done, and then, electrode with currency of 45, a LEEP biopsy was done, and as much as was possible, specimen was removed, and then, endocervical curetting was done. Estimated blood loss was about 10 mL. Patient tolerated the procedure well, went to the recovery room in good condition. Lili DUBOIS M.D. [id number]
[2018-09-09 15:23] VITALS: BP 142/79; PULSE 80; TEMP 97.7
--- NOTE | 2018-09-11 10:15 | PATH ---
Surgical Pathology Report Patient Name: ASHLI TANG [facility]. Rec. #: [id number] /Age/Gender: 1955 (Age: 63) / F Account: [id number] Location: [facility] SURGICAL Taken: 09/09/2018 Received: 09/09/2018 Reported: 09/11/2018 Physicians: Gabe Downey M.D. Specimen(s) Received A: LEEP CONE BIOPSY B: ENDOCERVICAL CURETTINGS Clinical History Low grade lesion Final Diagnosis A. CERVIX, CONE/LOOP ELECTROSURGICAL EXCISION PROCEDURE (LEEP): BENIGN CERVICAL SQUAMOUS AND ENDOCERVICAL MUCOSA. RARE DETACHED SQUAMOUS EPITHELIUM WITH CAUTERY ARTIFACT. NO DYSPLASIA IDENTIFIED. B. ENDOCERVICAL CURETTINGS, DILATION AND CURETTAGE: SCANT BENIGN ENDOCERVICAL EPITHELIUM AND CERVICAL SQUAMOUS MUCOSA ADMIXED WITH MUCUS AND BLOOD. NO DYSPLASIA IDENTIFIED. Electronically Signed Celine Hays M.D. Gross Description A. Received in formalin labeled "LEEP cone biopsy," is a 1.2 x 0.9 x 0.3 cm ford-pink, irregular, unoriented portion of tissue, possibly consistent with a portion of cervix. There is no cervical os present. The specimen is inked blue and serially sectioned. The specimen is entirely submitted in 2 cassettes. B. Received in formalin labeled "endocervical curettings," is a 2.4 x 1.8 x 0.2 cm aggregate of ford-red soft tissue fragments admixed with blood clot. The formalin is filtered and the specimen is entirely submitted in one cassette. /09/09/201809/09/2018
== END 2018-09-09 15:35 | disposition home or self-care (01) ==
LOC: JASU-SURG 05:11
PROVIDERS: ATTEND Obstetrics & Gynecology
PROC: 0UDB7ZX Extraction of Endometrium, Via Natural or Artificial Opening, Diagnostic (ICD-10-PCS; principal; 2018-09-09 12:00)
PROC: 0UBC7ZX Excision of Cervix, Via Natural or Artificial Opening, Diagnostic (ICD-10-PCS; 2018-09-09 12:00)
DX: N87.9 Dysplasia of cervix uteri, unspecified (principal)
CPT/HCPCS: 88305-TC; 88307-TC; 94760

== ENCOUNTER 2021-03-24 08:53 | Inpatient (IN) | payer MEDICARE ==
[2021-03-24] MEDS ORDERED: MAG HYDROX/AL HYDROX/SIMETH 30 ML UNIT-DOSE CUP PO ONE (09:38)
[2021-03-24] MEDS ORDERED: FAMOTIDINE 20 MG/50 ML IVPB 20 MG/50 ML MG IVPB ONE ×2 (09:38→10:27)
[2021-03-24] MEDS ORDERED: SODIUM CHLORIDE 0.9% 500 ML INFUS.BAG IV ONE ×3 (09:38→16:19)
[2021-03-24] MEDS ORDERED: MAG HYDROX/AL HYDROX/SIMETH 30 ML UNIT-DOSE CUP ONE (10:27)
[2021-03-24 11:24] LABS: BASO % 0.2 % (0-2.0); EOS % 0.1 % (0-4.5); HEMATOCRIT 40.6 % (32.4-45.2); HEMOGLOBIN 13.7 GM/dL (10.7-15.3); LYMPH % 16.6 % (8-40); MCH 27.6 pg (25.7-33.7); MCHC 33.7 g/dl (32.0-36.0); MEAN CELL VOLUME 81.9 fl (80-96); MEAN PLT VOLUME 8.8 fl (7.5-11.1); MONO % 8.1 % (3.8-10.2); PLATELET COUNT 304 10^3/uL (134-434); RBC 4.96 M/mm3 (3.60-5.2); RDW 15.5 % (11.6-15.6); WHITE BLOOD COUNT 7.9 K/mm3 (4.0-10.0)
[2021-03-24 11:44] LABS: CHLORIDE 93 mmol/L (98-107); SODIUM 132 mmol/L (136-145)
[2021-03-24 11:46] LABS: CALCIUM 9.4 mg/dL (8.5-10.1)
[2021-03-24 11:47] LABS: ALBUMIN 3.6 g/dl (3.4-5.0); BLOOD UREA NITROGEN 73.9 mg/dL (7-18); CO2 28 mmol/L (21-32); GLUCOSE,RANDOM 130 mg/dL (74-106); LIPASE 191 U/L (73-393)
[2021-03-24 11:50] LABS: CREATININE 2.7 mg/dL (0.55-1.3); SGOT/AST 72 U/L (15-37)
[2021-03-24 11:51] LABS: BILIRUBIN,TOTAL 0.7 mg/dL (0.2-1)
[2021-03-24 11:52] LABS: ALK PHOS 79 U/L (45-117); TOT PROT 8.6 g/dl (6.4-8.2)
[2021-03-24 12:04] LABS: ANION GAP 11 MMOL/L (8-16); SGPT/ALT 28 U/L (13-61)
[2021-03-24 12:29] LABS: LACTIC ACID 2.2 mmol/L (0.4-2.0)
[2021-03-24 13:00] LABS: EPI CELLS 18 /uL (0-25.1); HYALINE CASTS 17 /uL (0-3.1); URINE APPEARANCE CLEAR; URINE BACTERIA 16 /uL (0-1359); URINE BILIRUBIN NEGATIVE (NEGATIVE); URINE COLOR YELLOW; URINE GLUCOSE (UA) NEGATIVE (NEGATIVE); URINE KETONE TRACE (NEGATIVE); URINE LEUK ESTERASE 1+ (NEGATIVE); URINE NITRITE NEGATIVE (NEGATIVE); URINE PROTEIN TRACE (NEGATIVE); URINE RBC 13 /uL (0-23.9); URINE UROBILINOGEN 0.2 mg/dL (0.2-1.0); URINE WBC 81 /uL (0-25.8)
[2021-03-24 13:46] LABS: BLOOD UREA NITROGEN 68.8 mg/dL (7-18); CALCIUM 9.3 mg/dL (8.5-10.1)
[2021-03-24 13:50] LABS: CREATININE 2.2 mg/dL (0.55-1.3)
[2021-03-24] MEDS ORDERED: POTASSIUM CHLORIDE TABS 20 MEQ TABLET.ER (FP) PO ONE ×2 (14:00→15:27)
[2021-03-24] MEDS ORDERED: SODIUM CHLORIDE 1,000 ML IV SCH (16:30)
[2021-03-24] MEDS: SODIUM CHLORIDE 1,000 ML IV SCH (19:00)
[2021-03-24 19:36] LABS: CALCIUM 8.8 mg/dL (8.5-10.1)
[2021-03-24 19:37] LABS: BLOOD UREA NITROGEN 63.6 mg/dL (7-18)
[2021-03-24 19:40] LABS: CREATININE 1.9 mg/dL (0.55-1.3)
[2021-03-24 19:47] LABS: LACTIC ACID 2.8 mmol/L (0.4-2.0)
[2021-03-24] MEDS: ATORVASTATIN CA 20 MG TABLET (FP) PO SCH (22:54)
[2021-03-24 23:13] VITALS: BMI 25.7
[2021-03-25] MEDS: ASPIRIN 81 MG CHEWABLE TABLETS PO SCH (09:16)
[2021-03-25] MEDS: PANTOPRAZOLE 40 MG TABLET PO SCH (11:18)
[2021-03-25] MEDS: SODIUM CHLORIDE 1,000 ML IV SCH ×2 (16:23→21:17)
[2021-03-25] MEDS: INSULIN SLIDING SCALE (NOVOLOG) 1 VIAL SQ SCH (16:33)
[2021-03-25] MEDS: ATORVASTATIN CA 20 MG TABLET (FP) PO SCH (21:21)
[2021-03-25] MEDS: HEPARIN NA (PORCINE) 5,000 UNITS/ML 1ML VIAL SQ SCH ×2 (21:21→21:28)
[2021-03-26] MEDS: INSULIN SLIDING SCALE (NOVOLOG) 1 VIAL SQ SCH ×2 (06:54→16:46)
[2021-03-26] MEDS: ASPIRIN 81 MG CHEWABLE TABLETS PO SCH (10:09)
[2021-03-26] MEDS: HEPARIN NA (PORCINE) 5,000 UNITS/ML 1ML VIAL SQ SCH (10:09)
[2021-03-26] MEDS: PANTOPRAZOLE 40 MG TABLET PO SCH (10:09)
[2021-03-26 14:35] VITALS: BP 143/82; PULSE 94; TEMP 97.7
[2021-03-26] MEDS: SODIUM CHLORIDE 1,000 ML IV SCH (17:46)
== END 2021-03-26 18:07 | disposition home or self-care (01) | DRG 683 ==
LOC: JER 08:53 → JERBED 12:28 → J4S 22:29
PROVIDERS: ADMIT Internal Medicine; ATTEND Internal Medicine
DX: N17.9 Acute kidney failure, unspecified (principal); I24.8 Other forms of acute ischemic heart disease; E87.2 Acidosis; I10 Essential (primary) hypertension; E78.5 Hyperlipidemia, unspecified; K21.9 Gastro-esophageal reflux disease without esophagitis; M54.5 Low back pain; R63.0 Anorexia; Z68.25 Body mass index [BMI] 25.0-25.9, adult; E87.6 Hypokalemia; R10.13 Epigastric pain; R11.0 Nausea; R68.83 Chills (without fever)
CPT/HCPCS: 36415; 71045-TC-FY; 74176-TC; 80048; 80053; 80061; 81003; 82550; 82553; 82962; 83036; 83605; 83690; 84443; 84484; 85025; 87086; 93005; 93010; 99285-25; C9803; J1644; U0003; U0005